=== PATIENT | male | born 1950 | race Caucasian/White ===

== ENCOUNTER 2017-11-07 10:30 | Outpatient (CLI) | payer OTHER, MEDICARE | END 2017-11-07 23:59 | disposition home or self-care (01) | LOC: VAS 10:30 | PROVIDERS: ATTEND Pediatrics Sports Medicine | DX: M47.817 Spondylosis without myelopathy or radiculopathy, lumbosacral region (principal); M54.5 Low back pain; M41.9 Scoliosis, unspecified; M21.372 Foot drop, left foot; M25.552 Pain in left hip | CPT/HCPCS: 93971 ==